=== PATIENT | male | born 1980 | race Caucasian/White ===

== ENCOUNTER 2017-01-01 09:30 | Emergency (ER) | payer OTHER ==
[2017-01-01 09:35] VITALS: BMI 21.8
[2017-01-01 09:38] VITALS: BP 119/73; PULSE 75; RESP 15; TEMP 98; O2SAT 100
--- NOTE | 2017-01-01 10:28 | ED PDOC ---
Arrival/HPI - General Chief Complaint: Back Pain Time Seen by Provider: 01/01/17 10:09 Historian: Patient - History of Present Illness Narrative History of Present Illness (Text): 01/01/17 10:25 36-year-old male presents today with neck pain for the past 2 days. Patient states 2 days ago he turned his neck quickly to the right and developed pain in the right side of the neck. No medications are taken for pain at that time. Patient states then last night he was walking down the stairs into the basement and hit his head on a pipe and the ceiling. There was no loss of consciousness. He denies headache dizziness or weakness but states his neck is more stiff than it was the day before. Again no medications have been taken for pain. Patient denies numbness weakness or tingling in the lower extremities. He is complaining of pain with range of motion and stiffness in the neck. No other complaints Past Medical History - Provider Review Nursing Documentation Reviewed: Yes - Travel History Have you recently traveled outside [place] w/in the past 3 mons?: No - Infectious Disease Hx of Infectious Diseases: None - Tetanus Immunization Tetanus Immunization: Up to Date - Psychiatric Hx Depression: No Hx Emotional Abuse: No Hx Physical Abuse: No Hx Substance Use: No - Suicidal Assessment Feels Threatened In Home Enviroment: No Family/Social History - Physician Review Nursing Documentation Reviewed: Yes Family/Social History: Unknown Family HX Smoking Status: Never Smoked Hx Alcohol Use: No Hx Substance Use: No Hx Substance Use Treatment: No Allergies/Home Meds Allergies/Adverse Reactions: Allergies No Known Allergies Allergy (Verified 01/01/17 09:35) Review of Systems - Review of Systems Constitutional: absent: Fatigue, Fevers Eyes: absent: Vision Changes, Photophobia, Eye Pain Respiratory: absent: SOB, Cough Cardiovascular: absent: Chest Pain, Palpitations Gastrointestinal: absent: Abdominal Pain, Nausea, Vomiting Genitourinary Male: absent: Dysuria, Frequency, Hematuria Musculoskeletal: Neck Pain. absent: Arthralgias Skin: absent: Rash, Pruritis Neurological: absent: Headache, Dizziness Physical Exam Vital Signs Reviewed: Yes Vital Signs Temp Pulse Resp BP Pulse Ox 01/01/17 09:35 98 F 75 15 119/73 100 Temperature: Afebrile Blood Pressure: Normal Pulse: Regular Respiratory Rate: Normal Appearance: Positive for: Well-Appearing, Non-Toxic, Comfortable Pain Distress: None Mental Status: Positive for: Alert and Oriented X 3 - Systems Exam Head: Present: Atraumatic Mouth: Present: Moist Mucous Membranes Neck: Present: Paraspinal Tenderness (+ bilateral cervical paraspinal tenderness. no ecchymosis or erythema; ), Trachea Midline. No: Normal Range of Motion (stiff, limited rom of neck with pain), MIDLINE TENDERNESS Respiratory/Chest: Present: Clear to Auscultation Cardiovascular: Present: Regular Rate and Rhythm Back: Present: Normal Inspection. No: Midline Tenderness, Paraspinal Tenderness Neurological: Present: GCS=15 Skin: Present: Warm, Dry, Normal Color. No: Rashes Psychiatric: Present: Alert, Oriented x 3 Medical Decision Making ED Course and Treatment: 01/01/17 10:28 Patient nontoxic well-appearing in no distress with stable vital signs. pt refused toradol Flexeril given po within 15 minutes the patient was c/o nausea and vomited. zofran odt given. ct c-spine; FINDINGS: VERTEBRAE: No acute compression fractures no retropulsed fragments. Vertebral bodies exhibit normal stature. There is slight straightening of the normal upper cervical lordosis which may in part be due to patient positioning in the gantry. Possibility of underlying mild muscle spasm may contribute. DISCS/SPINAL CANAL/NEURAL FORAMINA: Disc space heights maintained. Some very minor broad-based disc bulging noted at the C6-C7 and to a lesser degree C5-C6 and less so the C4-C5 and C3-C4 levels. Overall central canal appears adequate without evidence of significant canal stenosis or cord compression. Exit foramina appear adequate. PARASPINAL SOFT TISSUES: Prevertebral and paraspinal soft tissues unremarkable. OTHER FINDINGS: Minor no evidence of apical pneumothorax. Mild biapical pleural thickening and adjacent parenchymal scarring. IMPRESSION: Unre no acute fracture seen. I discussed all results in depth with patient; advised taking medications for pain and f/u with orthopedist/it infrastructure specialist; advised return if symptoms worsen,persist or if new symptoms develop. pt states he will try the medications again on a full stomach later today. I advised to followup with the orthopedist within the next 2 days. Return if symptoms worsen persist or new symptoms develop Patient verbalizes understanding of discharge instructions and need for immediate followup. all aspects of this case were discussed the attending of record. Impression: neck pain, disc bulge, cspine Motrin every 6 hours as needed for pain Flexeril one tablet every 8 hours as needed for muscle spasms: May cause drowsiness Followup with the orthopedist within the next 2 days Followup with primary care physician within the next 2 days Return if symptoms worsen persist or if new symptoms develop - RAD Interpretation Radiology Orders: 01/01/17 10:35 CERVICAL SPINE W/O CONTRAST [CT] Stat - Medication Orders Current Medication Orders: Discontinued Medications Cyclobenzaprine HCl (Flexeril) 10 mg PO STAT STA Stop: 01/01/17 10:18 Last Admin: 01/01/17 10:26 Dose: 10 MG Ketorolac Tromethamine (Toradol) 60 mg IM STAT STA Stop: 01/01/17 10:18 Last Admin: 01/01/17 10:28 Dose: Ondansetron HCl (Zofran Odt) 4 mg PO STAT STA Stop: 01/01/17 10:39 Last Admin: 01/01/17 10:42 Dose: 4 MG Disposition/Present on Arrival - Present on Arrival Any Indicators Present on Arrival: No History of DVT/PE: No History of Uncontrolled Diabetes: No Urinary Catheter: No History of Decub. Ulcer: No History Surgical Site Infection Following: None - Disposition Have Diagnosis and Disposition been Completed?: Yes Diagnosis: Neck pain, Bulging discs Disposition: HOME/ ROUTINE Disposition Time: 10:34 Patient Plan: Discharge Patient Problems: Current Active Problems Problem Status Diagnosed Neck pain Acute Condition: GOOD Discharge Instructions (ExitCare): Cervical Sprain (ED) Additional Instructions: Motrin every 6 hours as needed for pain Flexeril one tablet every 8 hours as needed for muscle spasms: May cause drowsiness Followup with the orthopedist within the next 2 days Followup with primary care physician within the next 2 days Return if symptoms worsen persist or if new symptoms develop Prescriptions: Cyclobenzaprine [Cyclobenzaprine HCl] 10 mg PO Q8 #10 tab Ibuprofen [Motrin] 600 mg PO Q6H PRN #20 tab PRN Reason: pain/fever reduction Referrals: Huang Quiros MD [Staff Provider] - Follow up with primary Fredrick Schmitz MD [Staff Provider] - Follow up with primary Forms: WORK NOTE
--- NOTE | 2017-01-01 11:27 | CT ---
PROCEDURE: CT Cervical Spine without contrast HISTORY: <head injury, neck pain> COMPARISON: None available. TECHNIQUE: Axial computed tomography images were obtained of the cervical spine without the use of intravenous contrast. Coronal and sagittal reformatted images were created and reviewed. Radiation dose: Total exam DLP = 514.6 mGy-cm. FINDINGS: VERTEBRAE: No acute compression fractures no retropulsed fragments. Vertebral bodies exhibit normal stature. There is slight straightening of the normal upper cervical lordosis which may in part be due to patient positioning in the gantry. Possibility of underlying mild muscle spasm may contribute. DISCS/SPINAL CANAL/NEURAL FORAMINA: Disc space heights maintained. Some very minor broad-based disc bulging noted at the C6-C7 and to a lesser degree C5-C6 and less so the C4-C5 and C3-C4 levels. Overall central canal appears adequate without evidence of significant canal stenosis or cord compression. Exit foramina appear adequate. PARASPINAL SOFT TISSUES: Prevertebral and paraspinal soft tissues unremarkable. OTHER FINDINGS: Minor no evidence of apical pneumothorax. Mild biapical pleural thickening and adjacent parenchymal scarring. IMPRESSION: Unre no acute fracture seen.
== END 2017-01-01 11:50 | disposition home or self-care (01) ==
LOC: ED 09:30
DX: M54.2 Cervicalgia (principal)